=== PATIENT | male | born 1955 | race Caucasian/White ===

== ENCOUNTER 2019-09-29 09:20 | Inpatient (IN) | payer OTHER ==
[~2019-09-29] VITALS: Ht 180.3 cm; Wt 100.2 kg
[2019-09-29] VITALS (16 sets, daily range): BP systolic 122–149; BP diastolic 61–76
--- NOTE | 2019-09-29 09:37 | NUR ---
[facility] [phone]. PLEASE CALL WITH RESULTS.
[2019-09-29 09:50] LABS: BE(vivo) -2.7 mmol/L (-2 to +3); HCO3 19.1 mmol/L (22.0-26.0); PCO2 26.4 mmHg (35.0-45.0); PO2 180.2 mmHg (80.0-100.0); pH 7.477 (7.360-7.450); sO2 99.4 % (92.0-98.0)
[2019-09-29 10:05] LABS: ABSOLUTE NEUTROPHILS 6.9 thou/uL (1.4-8.2); BASOPHILS 0.9 % (0.0-2.0); EOSINOPHILS 5.2 % (0.0-3.0); HEMOGLOBIN 15.4 gm/dL (14.0-18.0); LYMPHOCYTES 13.8 % (24.0-44.0); MCH 35.5 pg (26.0-34.0); MCHC 34.2 g/dL (28.0-37.0); MCV 103.8 fL (80.0-100.0); MONOCYTES 9.1 % (1.0-8.0); PLATELET COUNT 222 thou/uL (150-400); RBC 4.33 mil/uL (4.50-6.00); RDW 14.3 % (10.5-14.5); WBC 9.7 thou/uL (4.0-11.0)
[2019-09-29 10:12] LABS: CALCIUM 8.7 mg/dL (8.5-10.1); CREATININE 0.9 mg/dL (0.7-1.3); POTASSIUM 3.7 mmol/L (3.5-5.1)
[2019-09-29] MEDS ORDERED: SYMBICORT160 MCG/4. INH (10:24)
[2019-09-29] MEDS ORDERED: PROAIR HFA8.5 GM INH (10:24)
[2019-09-29] MEDS ORDERED: SPIRIVA18 MCG PO (10:24)
[2019-09-29] MEDS ORDERED: PANTOPRAZOLE SO40 M1 PO (10:25)
[2019-09-29] MEDS ORDERED: ALLOPURINOL 30300 M1 PO (10:25)
[2019-09-29] MEDS ORDERED: ASPIR 8181 M1 PO (10:25)
[2019-09-29] MEDS ORDERED: MELOXICAM15 MG PO (10:25)
[2019-09-29] MEDS ORDERED: FOLIC ACID1 MG PO (10:25)
[2019-09-29] MEDS ORDERED: ZESTRIL20 MG PO (10:25)
--- NOTE | 2019-09-29 11:50 | NUR ---
SPOKE TO DR. CÁRDENAS AT THIS TIME, DR. CÁRDENAS STATED HE TOOK MASK OFF TO TRIAL NO BIPAP AND ROOM AIR. DR. CÁRDENAS CALLING DR. OLIVO
--- NOTE | 2019-09-29 16:51 | EKG ---
[facility] [place] [address] ELECTROCARDIOGRAM REPORT Name: ESDRAS WHITFIELD Room #: 247-P ADM IN M.R.#: [id number] Admission: 09/29/19 Attend Phys: Sandy Barnes Discharge: Date of : 51 Report #: [id number] THIS REPORT FOR: cc: FAM - Family physician unknown FAM - Family physician unknown Dennis Meyer MD [facility] ~ THIS REPORT FOR: //name// [facility] ED Test Date: 2019-09-29 Test Time: 09:44:42 Pat Name: ESDRAS WHITFIELD Department: Room: [facility] Gender: M Grants Administrator: HANH : 1955 Requested By: Bernard Ledesma Order Number: [id number] MD: Dennis Meyer Measurements Intervals [place] Rate: 97 P: 62 KS: 180 QRS: 45 QRSD: 98 T: 53 QT: 352 QTc: 447 Interpretive Statements Sinus rhythm Nonspecific ST segment abnormality No previous ECG available for comparison Electronically Signed On 09-29-2019 16:51:36 CDT by Dennis Meyer [email or web address] <ELECTRONICALLY SIGNED> By: Dennis Meyer MD, [facility] 09/29/19 1651 3 Dennis Meyer MD, [facility] /EPI
--- NOTE | 2019-09-29 20:15 | NUR ---
1645 PT ADMIT FROM ED. SPOKE WITH MONICO KAY, EUSEBIO TO DC ENHANCED PRECAUTIONS SINCE COVID - AND CXR IS CLEAR. PT ON BIPAP AT 100. STATES HE FEELS MUCH BETTER 1730 SPOKE WITH GIRL FRIEND, PLACED ON DESIGNATED VISITOR LIST AND GIVEN PT INFO. PLANS TO BRING GLASSES TOMORROW. 1800 KELLY OFF BIPAP. TOLERATE WATER.
[2019-09-30] VITALS (19 sets, daily range): BP systolic 117–144; BP diastolic 51–70
--- NOTE | 2019-09-30 04:46 | NUR ---
ASSESSMENT DOCUMENTED.PT BEEN RESTING IN NO ACUTE DISTRESS.A/OX4.VSS.ON O2 [id number] PNC,SPO2 ABOVE 93%.PT DENIES RESP DISTRESS,NOTED DYSPNEA WITH POSITIONING IN THE BED.NSR ON MONITOR.VOIDING VIA URINAL.ADEQAUTE URINE OUTPUT.TOLERATING ORAL FLUIDS.POC IS TO CONT W/POC.WILL CONT TO MONITOR PER POC.
[2019-09-30 07:57] LABS: BASOPHILS 0.2 % (0.0-2.0); EOSINOPHILS 0.2 % (0.0-3.0); HEMATOCRIT 48.8 % (42.0-52.0); HEMOGLOBIN 16.3 gm/dL (14.0-18.0); LYMPHOCYTES 15.2 % (24.0-44.0); MCH 35.5 pg (26.0-34.0); MCHC 33.3 g/dL (28.0-37.0); MCV 106.6 fL (80.0-100.0); MONOCYTES 2.6 % (1.0-8.0); POLYS 81.8 % (36.0-66.0); RBC 4.58 mil/uL (4.50-6.00); RDW 14.4 % (10.5-14.5); WBC 9.7 thou/uL (4.0-11.0)
[2019-09-30 08:02] LABS: CALCIUM 8.9 mg/dL (8.5-10.1); CREATININE 0.5 mg/dL (0.7-1.3); MAGNESIUM 2.4 mg/dL (1.8-2.4)
[2019-09-30 08:03] LABS: POTASSIUM 5.5 mmol/L (3.5-5.1)
[2019-09-30 08:31] LABS: PLATELET COUNT 120 thou/uL (150-400)
--- NOTE | 2019-09-30 08:51 | NUR ---
PATIENT IS ALERT ORIENTED X4 AT THIS TIME. HE STATES HEW FEELS MUCH BETTER. DENIES PAIN. OXYGEN SAT SIGNIGICANTLY IMPROVED HE IS NOW ON 4L NC. HAD A GOOD APPETITE FOR BREAKFAST. WILL CONT WITH PLAN OFCARE.
--- NOTE | 2019-09-30 17:30 | NUR ---
PATIENT TRANSFERED TO AT THIS TIME. HE IS ALERT ORIENTED X4. DENIES PAIN. CONT ON OXYGEN AT 3L. REPORT AND TRANSPORT PROVIDED.
--- NOTE | 2019-09-30 17:57 | NUR ---
PT ARRIVED TO UNIT FROM ICU AT APPROX 1715. PT ALERT AND ORIENTED.VSS. DENIES PAIN. PT UP WALKING SBA TOLERATING WELL. O2 SATS WNL ON 3L. SOB WITH EXERTION. ASSESSMENT COMPLETED. TELE STRIP PRINTED AND DOCUMENTED. PT CURRENTLY SITTING UP IN BED DENYING NEEDS/CONCERNS. S/O HANNAH NOTFIIED OF TX TO CCU, HANNAH TO BRING PT CELL PHONE AND MAGAZINES TO DROP OFF FOR PT. WILL CONT TO MONITOR PT. WILL PASS ON REPORT TO NATHAN BARRIOS.
[2019-10-01 04:15] VITALS: BP 134/68
--- NOTE | 2019-10-01 05:26 | NUR ---
ASSUMED CARE OF PT FROM DAY SHIFT , PT RESTING BED , HAVE NO CONCERNS VOICED, ASSESSMENT CHART, ACOUSTIC SENSOR OPERATOR SHOWS NSR , PT RESTED WELL THROUGHOUT HOURLY ROUNDS WILL REPORT CHANGES AND ABNORMAL FINDINGS.
[2019-10-01 07:26] VITALS: BP 125/70
[2019-10-01 11:10] VITALS: BP 133/66
[2019-10-01 15:39] VITALS: BP 134/76
--- NOTE | 2019-10-01 18:32 | NUR ---
ASSUMED CARE PT SHIFT CHANGE. ASSESSMENTS CHARTED.MEDS GIVEN PER MAR. PT ALERT AND ORIENTED. VSS. UP ADLIB TOLERATING WELL. DENIES SOB. PT STATES BREATHING IS BETTER. PT TITRATED OFF O2 TO ROOM AIR. SPOUSE VISITED WITH PT. HOPEFUL FOR DC IN AM. PT CURRENTLY SITTING UP IN BED DENIES CONCERNS. CONTINUING TO MONITOR.
[2019-10-01 20:54] VITALS: BP 120/64
[2019-10-02 04:00] VITALS: BP 125/75
[2019-10-02 07:34] VITALS: BP 140/75
[2019-10-02] MEDS ORDERED: AZITHROMYCIN500 MG PO (09:04)
[2019-10-02] MEDS ORDERED: MEDROL4 M1 PO (09:05)
--- NOTE | 2019-10-02 10:25 | NUR ---
RECEIVED PT'S CARE AROUND 0736; PT. ON BED; RESTING WITH EYES CLOSED; EQUAL CHEST RISING NOTICED; SR ON THE MONITOR; DURING AM ASSESSMENT AOX4; PER DR. LORENZO DURING ROUNDING PT. READY TO BE D/C; REQUESTED D/C ORDERS; D/C ORDERS ON PLACED; PT. NOTIFIED; EDUCATED ABOUT D/C PROCESS; ST. UNDERSTANDING; EDUCATED ABOUT FALL PREVENTIONS; ST. UNDERSTANDING; ASSESSMENT CHARGED; FOLLOWED POC; WORKING ON D/C PAPERS;
[2019-10-02 10:35] VITALS: BP 140/75
== END 2019-10-02 11:26 | disposition home or self-care (01) | DRG 189 ==
LOC: ER 09:20 → EROBS 15:07 → ICU 16:50 → 2N 09-30 17:08
PROVIDERS: Emergency Medicine; Nurse Practitioner; ADMIT Hospitalist; ATTEND Hospitalist
PROC: 5A09357 Assistance with Respiratory Ventilation, Less than 24 Consecutive Hours, Continuous Positive Airway Pressure (ICD-10-PCS; principal; 2019-09-29)
DX: J96.01 Acute respiratory failure with hypoxia (principal); J44.1 Chronic obstructive pulmonary disease with (acute) exacerbation; I50.9 Heart failure, unspecified; J96.02 Acute respiratory failure with hypercapnia; E66.9 Obesity, unspecified; F10.10 Alcohol abuse, uncomplicated; Z20.828 Contact with and (suspected) exposure to other viral communicable diseases; I11.0 Hypertensive heart disease with heart failure; Z68.30 Body mass index [BMI] 30.0-30.9, adult; Z87.891 Personal history of nicotine dependence; Z71.6 Tobacco abuse counseling
CPT/HCPCS: 10081; 10204

== ENCOUNTER 2019-10-24 04:38 | Inpatient (IN) | payer OTHER ==
[~2019-10-24] VITALS: Ht 180.3 cm; Wt 103.0 kg
[~2019-10-24 04:38] MED LIST: ALLOPURINOL 30300 M1 PO; ASPIR 8181 M1 PO; AZITHROMYCIN500 MG PO; FOLIC ACID1 MG PO; MEDROL4 M1 PO; MELOXICAM15 MG PO; PANTOPRAZOLE SO40 M1 PO; PROAIR HFA8.5 GM INH; SPIRIVA18 MCG PO; SYMBICORT160 MCG/4. INH; ZESTRIL20 MG PO
[2019-10-24 04:39] VITALS: BP 132/66
[2019-10-24 05:17] LABS: ABSOLUTE NEUTROPHILS 4.3 thou/uL (1.4-8.2); BASOPHILS 0.7 % (0.0-2.0); EOSINOPHILS 12.8 % (0.0-3.0); HEMATOCRIT 41.7 % (42.0-52.0); HEMOGLOBIN 14.5 gm/dL (14.0-18.0); MCH 35.5 pg (26.0-34.0); MCHC 34.9 g/dL (28.0-37.0); MCV 101.7 fL (80.0-100.0); PLATELET COUNT 206 thou/uL (150-400); POLYS 48.5 % (36.0-66.0); WBC 8.9 thou/uL (4.0-11.0)
[2019-10-24 05:26] LABS: ANION GAP 9 mmol/L (7-16); BUN 14 mg/dL (7-18); CALCIUM 8.8 mg/dL (8.5-10.1); CHLORIDE 106 mmol/L (98-107); CO2 27 mmol/L (21-32); GLUCOSE 111 mg/dL (74-106); POTASSIUM 3.8 mmol/L (3.5-5.1); SODIUM 142 mmol/L (136-145)
[2019-10-24 05:36] LABS: ALBUMIN 3.5 g/dL (3.4-5.0); SGOT 30 U/L (15-37); SGPT 54 U/L (30-65); TOTAL BILIRUBIN 0.5 mg/dL (0.2-1.0); TOTAL PROTEIN 7.2 g/dL (6.4-8.2); TROPONIN-I <0.06 ng/mL (<0.06)
[2019-10-24] MEDS ORDERED: PREDNISONE 20 M20 MG PO (06:12)
[2019-10-24 14:46] LABS: ABSOLUTE NEUTROPHILS 3.9 thou/uL (1.4-8.2); BASOPHILS 0.6 % (0.0-2.0); EOSINOPHILS 0.3 % (0.0-3.0); HEMOGLOBIN 14.6 gm/dL (14.0-18.0); LYMPHOCYTES 14.4 % (24.0-44.0); MCH 35.3 pg (26.0-34.0); MCHC 34.8 g/dL (28.0-37.0); MCV 101.6 fL (80.0-100.0); MONOCYTES 0.8 % (1.0-8.0); PLATELET COUNT 188 thou/uL (150-400); POLYS 83.9 % (36.0-66.0); RBC 4.13 mil/uL (4.50-6.00); RDW 14.2 % (10.5-14.5); WBC 4.6 thou/uL (4.0-11.0)
[2019-10-24 15:27] VITALS: BP 145/76
[2019-10-24 15:34] VITALS: BP 145/71
--- NOTE | 2019-10-24 16:06 | EKG ---
[facility] [place] [address] ELECTROCARDIOGRAM REPORT Name: ESDRAS WHITFIELD Room #: 360-P ADM IN M.R.#: [id number] Admission: 10/24/19 Attend Phys: Jai Driscoll MD Discharge: Date of : 51 Report #: [id number] THIS REPORT FOR: cc: FAM - Family physician unknown FAM - Family physician unknown Sam Martinez MD ~ THIS REPORT FOR: //name// [facility] ED Test Date: 2019-10-24 Test Time: 04:45:00 Pat Name: ESDRAS WHITFIELD Department: Room: [facility] Gender: M Hardwood Faller: NO : 1955 Requested By: Ronal Morgan Order Number: [id number] MD: Sam Martinez Measurements Intervals [place] Rate: 95 P: 59 [place]: 183 QRS: 32 QRSD: 100 T: 55 QT: 379 QTc: 477 Interpretive Statements Sinus rhythm Ventricular bigeminy Anteroseptal infarct, old Compared to ECG 09/29/2019 09:44:42 Ventricular premature complex(es) now present Myocardial infarct finding now present ST (T wave) deviation no longer present Electronically Signed On 10-24-2019 16:06:19 CDT by Sam Martinez [email or web address] <ELECTRONICALLY SIGNED> By: Sam Martinez MD 10/24/19 1606 4 Sam Martinez MD /EPI
[2019-10-24 16:15] VITALS: BP 149/83
--- NOTE | 2019-10-24 18:01 | NUR ---
ASSUMED PATIENT CARE UPON ARRIVAL FROM ER. PATIENT ARRIVED TO FLOOR AWAKE ALERT ORIENTED, VIA WC. NO ACUTE RSP DISTRESS NOTED. O2 SAT STABLE ON 2LNC. VSS. ASSESSMENTS/ MEDS CHARTED. ORIENTED TO ROOM. EDUCATED ON FALL PRECAUTIONS. ALL QUESTIONS ANSWERED AT THIS TIME. EDUCATED ON ISOLATION PROCEDURES. PENDING COVID RESULTS.
[2019-10-24 20:05] VITALS: BP 145/74
--- NOTE | 2019-10-25 01:10 | NUR ---
VSS-AFEBRILE. 2LNC IN PLACE. LUNGS SOUND TIGHT AND WHEEZY IN BILATERAL LUNG HOBSON. REPORTS MILD SOA WITH EXERTION. OOB WITH SBA TO USE BATHROOM, CALLS APPROPRIATELY FOR ANY NEEDED ASSISTANCE.
[2019-10-25 04:14] VITALS: BP 142/82
[2019-10-25 05:35] LABS: HEMATOCRIT 40.9 % (42.0-52.0); HEMOGLOBIN 14.2 gm/dL (14.0-18.0); MCH 35.4 pg (26.0-34.0); MCHC 34.6 g/dL (28.0-37.0); MCV 102.3 fL (80.0-100.0); RDW 13.5 % (10.5-14.5); WBC 8.7 thou/uL (4.0-11.0)
[2019-10-25 05:51] LABS: CALCIUM 8.7 mg/dL (8.5-10.1); CREATININE 0.9 mg/dL (0.7-1.3); POTASSIUM 3.9 mmol/L (3.5-5.1)
[2019-10-25 08:32] VITALS: BP 141/76
--- NOTE | 2019-10-25 13:44 | NUR ---
INITIAL ASSESSMENT: SUE reviewed chart and spoke with nursing and attending physician. Pt was admitted from home due to exacerbation of COPD. Pt placed in Enhanced Isolation to r/o COVID-19. First test was negative. Second test is pending. Pt is afebrile and on 2L of O2. Pt is on IV abx and IV steroids. Pt with hx of ETOH use. SUE placed call to pt's room. No answer. SUE left voice message on listed contact number for pt ([phone]). Per chart, pt is alert/orientated. Pt lives at home with s/oMiya. Pt may transfer of 3W pending COVID results. SUE is following to assist as needed with discharge planning.
--- NOTE | 2019-10-25 14:57 | NUR ---
PT CARE ASSUMMED AT 0700, PT ALERT AND ORIENTED X4, PT DENIES CHEST PAIN,NUASEA AND VOMITTING. PT IS ON 2L OF O2 VIA NC, NO SIGNS OF DISTRESS. PT IS UP AD GIL. PT DENIES ANY PAIN. CALL LIGHT AND TABLE IN REACH. PT DENIES ANY NEEDS BASILIO, WILL CONTINUE TO MONITOR.
--- NOTE | 2019-10-25 16:47 | NUR ---
PT MAY BE REMOVED FROM ENHANCED PRECAUTIONS PER JOE KAY.
[2019-10-25 20:10] VITALS: BP 131/61
--- NOTE | 2019-10-25 23:00 | NUR ---
Pt transferred from at 2150 via WC. A/OX4. Up ad fidencio. Denies pain on asssessment. LSCTA.No cough or SOA reported. On O2 2L/NC. Pt encouraged to voice needs as needed. Snacks provided per request. Resting in room watching TV will continue to monitor pt.
[2019-10-26 01:20] VITALS: BP 124/61
[2019-10-26 07:34] VITALS: BP 129/56
[2019-10-26 11:17] LABS: TSH 0.513 uIU/mL (0.358-3.740)
[2019-10-26] MEDS ORDERED: AUGMENTIN 875-1 EACH PO (11:17)
[2019-10-26] MEDS ORDERED: PREDNISONE 20 M20 M1 PO (11:17)
[2019-10-26 11:45] VITALS: BP 129/56
--- NOTE | 2019-10-26 12:01 | NUR ---
CARE TEAM INDICATED THAT PT IS MEDICALLY STABLE TO DISCHARGE HOME THIS DAY. EX OX TESTING WAS COMPLETED AND PT DIDN'T QUALIFY FOR HOME O2 AT TIME OF DC. PT IS TO DC HOME TO SELF CARE. CM MET WITH PT AND SPOUSE AT BEDSIDE AND THEY ARE AWARE AND AGREEABLE WITH DC. NO OTHER CM INTERVENTION INDICATED. CASE CLOSED.
--- NOTE | 2019-10-26 12:11 | NUR ---
PT CARE ASSUMED APPROX 0700. ASSESSMENT CHARTED. PT DENIES PAIN AND SOA. VSS. UP WITH STEADY GAIT AND LIBERATED FROM O2. DISCHARGING AT THIS TIME. DISCHARGE INSTRUCTIONS REVIEWED WITH PT AND HIS . BOTH DENY QUESTIONS OR CONCERNS REGARDING POST HOSPITAL CARES. IV OUT, TELE OFF. PT BEING ESCORTED OUT AT THIS TIME. ALL BELONGINGS IN PT POSSESSION.
== END 2019-10-26 12:16 | disposition home or self-care (01) | DRG 193 ==
LOC: ER 04:38 → EROBS 09:17 → 3W 09:17 → 4W 10-25 22:05
PROVIDERS: Emergency Medicine; Internal Medicine Geriatric Medicine; Internal Medicine Pulmonary Disease; ADMIT Hospitalist; ATTEND Hospitalist
DX: J18.9 Pneumonia, unspecified organism (principal); J96.01 Acute respiratory failure with hypoxia; J44.1 Chronic obstructive pulmonary disease with (acute) exacerbation; I50.9 Heart failure, unspecified; I11.0 Hypertensive heart disease with heart failure; D72.1 Eosinophilia; Z20.828 Contact with and (suspected) exposure to other viral communicable diseases; Z71.6 Tobacco abuse counseling; Z79.899 Other long term (current) drug therapy
CPT/HCPCS: 10040; 10080

== ENCOUNTER 2020-12-28 16:05 | Inpatient (IN) | payer OTHER ==
[~2020-12-28] VITALS: Ht 180.3 cm; Wt 101.2 kg
[2020-12-28] VITALS (18 sets, daily range): BP systolic 89–124; BP diastolic 40–62
--- NOTE | ~2020-12-28 | EMS ---
[place] [address] EMS Patient Care Report Name: ESDRAS WHITFIELD Room #: 170-6 ADM IN M.R.#: [id number] Admission: 12/28/20 Attend Phys: Ash Rosa MD Discharge: Date of : 51 Report #: [id number] THIS REPORT FOR: //name// Report Transmitted: 12/28/2020 17:10 EMS Care Summary [place], [place]/[facility] Incident [id number] @ 12/28/2020 15:18 Incident Location [address] [address] Patient NED WHITFIELD Male, 65 Years 1955 Patient Address [address], [place] [address] Patient History Cancer, Unspecified,Chronic Obstructive Pulmonary Disease (COPD), Patient Allergies No known allergies, Patient Medications Hydrocodone, Chief Complaint Lethargic Disposition Transported No Lights/[place] Dispatch Reason Sick Person Transported To [facility] Narrative M36 dispatched on a sick person. M36 arrived to find PT seated in recliner inside of home with P30 at PT side. PT family stated lethargy as chief complaint. PT stated PT normally alert and oriented x4 and ambulatory. PT grunted in response to questions. PT radial pulse thready[place] [address] EMS Patient Care Report Name: ESDRAS WHITFIELD Room #: 170-6 ADM IN M.Ryan.#: [id number] Admission: 12/28/20 Attend Phys: Ash Rosa MD Discharge: Date of : 51 Report #: [id number] and placed on federico barnworker groom. PT carried out of home on federico barnworker groom by EMS and fire personnel. PT placed on stretcher. PT secured with seatbelts. Surgical mask placed on PT. PT vitals taken including blood glucose. PT treated for hypoglycemia. PT placed on oxygen. IV access obtained by Artist'S Manager Stalker. During transport PT became alert to self and place only. PT denied pain. PT denied shortness of breath. PT vitals monitored during transport including blood glucose. PT report given. PT moved to hospital bed via four person sheet lift. PT care and belongings transferred to ER staff at [facility] without incident. M36 placed back in service. Initial Vitals @15:50P: 110,R: 18,BP: 82/46,Pain: 0/10,GCS: 14,CO: 0,SpO2: 95,Revised Trauma: 11, @15:43P: 106,R: 18,BP: 88/42,Pain: 0/10,GCS: 13,SpO2: 93,Revised Trauma: 11, @15:38P: 102,R: 20,BP: 94/46,Pain: 0/10,GCS: 13,Glucose: 45,SpO2: 94,Revised Trauma: 12, @15:43P: 102,R: 18,BP: 98/60,Pain: 0/10,GCS: 14,Glucose: 230,SpO2: 95,Revised Trauma: 12, Assessments @15:29MENTAL:Confused,SKIN:Jaundiced,Pale,HEENT:LUNG SOUNDS:General: Other,ABDOMEN:General: Other,PELVIS//GI:EXTREMITIES:Left Arm: Other,Right Leg: Edema,Left Leg: Edema,Right Arm: Other,PULSE:Radial: 1+ Thready,NEURO:Slurred Speech,@15:49MENTAL:Person Oriented,Place Oriented,Confused,SKIN:Pale,Jaundiced,HEENT:LUNG SOUNDS:General: Other,ABDOMEN:General: Other,PELVIS//GI:EXTREMITIES:PULSE:NEURO: Impression Altered Mental Status Procedures @PTAALS Assessment Response: UnchangedSucceeded @15:37 IV Therapy - Normal Saline (.9% NaCl) 300cc (20 ga) Site: Hand-Left Response: UnchangedSucceeded @15:39 Dextrose 10% - 200 Milliliters (ml) - Intravenous (IV) Response: Improved @15:46 Oxygen FlowRate: 2 Device: Nasal Cannula (NC) Response: UnchangedSucceeded Timeline INSIDE SALES REPRESENTATIVE,ALS Assessment,Response: UnchangedSucceeded, 15:16,Call Received 15:16,Dispatch Notified 15:18,[place] [address] EMS Patient Care Report Name: ESDRAS WHITFIELD Room #: 170-6 ADM IN M.R.#: [id number] Admission: 12/28/20 Attend Phys: Ash Rosa MD Discharge: Date of : 51 Report #: [id number] 15:19,En Route 15:27,On Scene 15:28,At Patient 15:37,IV Therapy - Normal Saline (.9% NaCl) 300cc 20 ga Site: Hand-Left,Response: UnchangedSucceeded, 15:38,BP: 94/46 M,PULSE: 102,RR: 20 R,SPO2: 94 Ox,ETCO2: ,B,PAIN: 0,GCS: 13, 15:39,Dextrose 10% - 200 Milliliters (ml) - Intravenous (IV),Response: Improved 15:43,BP: 88/42 M,PULSE: 106,RR: 18 R,SPO2: 93 Ox,ETCO2: ,BG: ,PAIN: 0,GCS: 13, 15:43,BP: 98/60 M,PULSE: 102,RR: 18 R,SPO2: 95 Ox,ETCO2: ,B,PAIN: 0,GCS: 14, 15:45,Depart Scene 15:46,Oxygen FlowRate: 2 Device: Nasal Cannula (NC) Response: UnchangedSucceeded, 15:50,BP: 82/46 M,PULSE: 110,RR: 18 R,SPO2: 95 Ox,ETCO2: ,BG: ,PAIN: 0,GCS: 14, 15:58,At Destination 16:08,Call Closed Disclaimer v1.1 Copyright 2020 [employer] This EMS Care Summary contains data elements from the applicable legal record (which may be displayed differently). It is designed to provide pertinent information for the following purposes: continuity of care, clinical quality, and state data reporting. The complete legal record is available to ED staff and administrators of the receiving hospital in [employer]'s Patient Tracker. All data is provided "as is."
[~2020-12-28 16:05] MED LIST changes: +AUGMENTIN 875-1 EACH PO; +PREDNISONE 20 M20 M1 PO; +PREDNISONE 20 M20 MG PO
[2020-12-28 16:28] LABS: HEMATOCRIT 24.6 % (42.0-52.0); HEMOGLOBIN 7.9 gm/dL (14.0-18.0); MCH 29.9 pg (26.0-34.0); MCHC 32.1 g/dL (28.0-37.0); MCV 93.4 fL (80.0-100.0); PLATELET COUNT 111 thou/uL (150-400); RBC 2.64 mil/uL (4.50-6.00); RDW 24.4 % (10.5-14.5)
[2020-12-28 16:38] LABS: CALCIUM 7.4 mg/dL (8.5-10.1); CREATININE 2.9 mg/dL (0.7-1.3); POTASSIUM 4.2 mmol/L (3.5-5.1)
[2020-12-28 16:41] LABS: BE(vivo) -4.8 mmol/L (-2 to +3); HCO3 18.4 mmol/L (22.0-26.0); pH 7.451 (7.360-7.450); sO2 97.8 % (92.0-98.0)
[2020-12-28 16:49] LABS: ALBUMIN 1.4 g/dL (3.4-5.0); TOTAL BILIRUBIN 3.9 mg/dL (0.2-1.0); TOTAL PROTEIN 5.9 g/dL (6.4-8.2)
[2020-12-28 16:52] LABS: URINE BILIRUBIN 2+ (Negative); URINE BLOOD NEGATIVE (Negative); URINE CLARITY CLEAR; URINE COLOR YELLOW; URINE GLUCOSE-RANDOM* TRACE (Negative); URINE KETONES TRACE (Negative); URINE LEUKOCYTES-REFLEX NEGATIVE (Negative); URINE PROTEIN (DIPSTICK) TRACE (Negative); URINE SPECIFIC GRAVITY >= 1.030 (1.005-1.035)
[2020-12-28 16:54] LABS: ICTOTEST (BILI CONFIRMATORY) Positive (Negative); URINE NITRITE-REFLEX POSITIVE (Negative)
[2020-12-28 16:58] LABS: ABSOLUTE NEUTROPHILS 27.7 thou/uL (1.4-8.2)
[2020-12-28 16:58] LABS: APTT 66.5 Seconds (24.5-32.8); INR 4.18; PROTIME 42.6 Seconds (10.5-12.1)
[2020-12-28 16:59] LABS: ANISOCYTOSIS 2+
[2020-12-28 17:06] LABS: CRYSTALS None Seen /LPF (None Seen); SQUAMOUS 0-3 Few /LPF (0-3); URINE RBC 1-2 Rare /HPF (NONE SEEN); URINE WBC-REFLEX 0-5 Rare /HPF (0-5)
[2020-12-28 17:07] LABS: HYALINE CASTS 0-3 Few /LPF (None Seen)
[2020-12-28 21:20] LABS: CALCIUM 7.5 mg/dL (8.5-10.1); CREATININE 2.8 mg/dL (0.7-1.3)
[2020-12-29] VITALS (92 sets, daily range): BP systolic 79–147; BP diastolic 34–88
[2020-12-29 05:29] LABS: APTT 73.1 Seconds (24.5-32.8); INR 4.18; PROTIME 42.6 Seconds (10.5-12.1)
[2020-12-29 05:35] LABS: ABSOLUTE NEUTROPHILS 33.5 thou/uL (1.4-8.2); BASOPHILS 0.1 % (0.0-2.0); EOSINOPHILS 0.1 % (0.0-3.0); HEMATOCRIT 25.8 % (42.0-52.0); HEMOGLOBIN 8.4 gm/dL (14.0-18.0); LYMPHOCYTES 5.5 % (24.0-44.0); MCH 30.4 pg (26.0-34.0); MCHC 32.6 g/dL (28.0-37.0); MCV 93.5 fL (80.0-100.0); MONOCYTES 6.5 % (1.0-8.0); PLATELET COUNT 108 thou/uL (150-400); POLYS 87.8 % (36.0-66.0); RBC 2.76 mil/uL (4.50-6.00); RDW 24.4 % (10.5-14.5); WBC 38.1 thou/uL (4.0-11.0)
[2020-12-29 05:41] LABS: CALCIUM 7.4 mg/dL (8.5-10.1); CREATININE 2.2 mg/dL (0.7-1.3); POTASSIUM 3.7 mmol/L (3.5-5.1)
--- NOTE | 2020-12-29 08:20 | NUR ---
PT ARRIVED TO UNIT APPROX 2009. ADMISSION COMPLETED. PT LETHARGIC W/INTERMITTENT BURSTS OF RESTLESS/IMPULSIVE ACTIVITY, STRUGGLED TO FOLLOW COMMANDS. 0-CALLED , UPDATED ON CONDITION, AND OBTAINED HISTORY. SHE REPORTS PT WISHES TO BE DNI, BUT WOULD STILL WANT CHEST COMPRESSIONS, SAYS SHE WILL BRING COPY OF ADV DIRECTIVE AND DPOA PAPERS WHEN SHE VISITS. ELEVATED LACTIC OVERNIGHT, FLUID CHALLENGE COMPLETED, GIVEN ALBUMIN, LEVO CHANGED TO QUAD STRENGTH. SPOKE TO DR. PONCE AND DR. GREGROY AT BEDSIDE THIS AM. NO FURTHER CONCERNS.
[2020-12-29 11:16] LABS: ALBUMIN 1.5 g/dL (3.4-5.0); DIRECT BILIRUBIN 3.3 mg/dL (<0.1-0.2); TOTAL PROTEIN 6.2 g/dL (6.4-8.2)
[2020-12-29 11:17] LABS: TOTAL BILIRUBIN 4.1 mg/dL (0.2-1.0)
--- NOTE | 2020-12-29 13:31 | EKG ---
[address] [place] [address] ELECTROCARDIOGRAM REPORT Name: ESDRAS WHITFIELD Room #: 243-P ADM IN M.R.#: [id number] Admission: 12/28/20 Attend Phys: Ash Rosa MD Discharge: Date of : 51 Report #: [id number] [facility] ED Test Date: 2020-12-28 Test Time: 16:15:05 Pat Name: ESDRAS WHITFIELD Department: Room: 243 Gender: M Partner Cco: AMBREEN : 1955 Requested By: Adonis Hurley Order Number: [id number] MD: Dennis Meyer Measurements Intervals [place] Rate: 108 P: 58 PA: 168 QRS: -14 QRSD: 114 T: 171 QT: 332 QTc: 445 Interpretive Statements Sinus tachycardia Nonspecific intraventricular conduction delay Poor R wave progression Inferior infarct, old Compared to ECG 10/24/2019 04:45:00 Nonspecific intraventricular conduction delay now present Nonspecific change in the ST and T wave segments Ventricular premature complex(es) no longer present Electronically Signed On 12-29-2020 13:30:44 CDT by Dennis Meyer [email or web address] <ELECTRONICALLY SIGNED> By: Dennis Meyer MD, FACC 12/29/20 1330 1615 1615 Dennis Meyer MD, [facility] /EPI
--- NOTE | 2020-12-29 17:53 | NUR ---
PATIENT SLOWLY PROGRESSING TOWARDS THE PLAN OF CARE. 2 U OF FFP GIVEN TODAY. WILL CHECK INR IN THE AM PER DR. OLGUIN.
[2020-12-29 18:58] LABS: CALCIUM 7.8 mg/dL (8.5-10.1); CREATININE 1.9 mg/dL (0.7-1.3)
[2020-12-30] VITALS (98 sets, daily range): BP systolic 88–143; BP diastolic 41–71
--- NOTE | 2020-12-30 03:29 | NUR ---
PT SUDDENLY BECAME VERY AGITATED AND TRYING TO GET OUT OF BED. RODRIGUEZ FEEDER OPERATOR NOTIFIED. HALDOL 2 MG IV ORDERED AND GIVEN.
[2020-12-30 04:36] LABS: ABSOLUTE NEUTROPHILS 26.8 thou/uL (1.4-8.2); BASOPHILS 0.3 % (0.0-2.0); HEMOGLOBIN 8.1 gm/dL (14.0-18.0); LYMPHOCYTES 7.8 % (24.0-44.0); MCH 30.1 pg (26.0-34.0); MCHC 32.3 g/dL (28.0-37.0); MCV 93.2 fL (80.0-100.0); MONOCYTES 8.6 % (1.0-8.0); PLATELET COUNT 83 thou/uL (150-400); POLYS 83.3 % (36.0-66.0); RBC 2.69 mil/uL (4.50-6.00); RDW 23.8 % (10.5-14.5); WBC 32.2 thou/uL (4.0-11.0)
[2020-12-30 04:54] LABS: PROTIME 21.3 Seconds (10.5-12.1)
[2020-12-30 04:55] LABS: INR 2.02
[2020-12-30 04:56] LABS: APTT 47.6 Seconds (24.5-32.8)
[2020-12-30 04:57] LABS: ALBUMIN 1.7 g/dL (3.4-5.0); CALCIUM 7.7 mg/dL (8.5-10.1); CREATININE 1.8 mg/dL (0.7-1.3); MAGNESIUM 1.6 mg/dL (1.8-2.4)
[2020-12-30 04:58] LABS: POTASSIUM 2.7 mmol/L (3.5-5.1); TOTAL BILIRUBIN 4.7 mg/dL (0.2-1.0)
--- NOTE | 2020-12-30 06:00 | NUR ---
REMAINS ON LEVOPHED GTT AT 16 MCG FOR BP SUPPORT
--- NOTE | 2020-12-30 06:00 | NUR ---
PT RESTING QUIETLY NOW. COOPERATIVE. O2 SAT 99 % REMAINS NPO FOR THORACENTESIS THIS AM 800 CC UO THIS SHIFT. CONT TO HAVE SEVERE ACITIES AND 4 + PITTING EDEMA OF FEET. VERY DYSPNIC WITH ANY EXERTION. PT IS A DO NOT INTUBATE. NOT PROGRESSING TOWARD GOALS
--- NOTE | 2020-12-30 07:35 | HC ---
[facility] [place] [address] CONSULTATION Name: ESDRAS WHITFIELD Room #: 243-P ADM IN M.R.#: [id number] Admission: 12/28/20 Attend Phys: Ash Rosa MD Discharge: Date of : 51 Report #: [id number] THIS REPORT FOR: cc: FAM - Family physician unknown FAM - Family physician unknown Raul Stephens MD ~ DATE OF SERVICE: 12/29/2020 INFECTIOUS DISEASE CONSULTATION ATTENDING PHYSICIAN: Dr. Ash Rosa REASON FOR EVALUATION: Septic shock. HISTORY OF PRESENT ILLNESS: Chart reviewed. The patient examined. This is a 65-year-old gentleman who is encephalopathic, difficult to obtain additional history from him. 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 He apparently became more encephalopathic in recent days. He had undergone a paracentesis 5 days prior, took off 4.5 liters of fluid. There are no other details of the analysis. He became increasingly lethargic. On questioning, he notes abdominal discomfort, although no sense of whether he has had fever or not. On evaluation, he was found to be hypotensive. Initial blood cultures were satisfactory on 2 liters with pO2 of 98. He is in renal failure with a creatinine of 2.9. Albumin is 1.4. Coronavirus testing was negative. Initial CBC showed a white count of 33,000, hemoglobin of 7.9, and platelets of 111. Urinalysis was otherwise not remarkable for inflammation, had evidence of bilirubin, did have some nitrites as well. Ammonia level was elevated, 61. CT abdomen and pelvis noted consistent with underlying cirrhosis with nodular-type appearance. Procalcitonin elevated at 6.5. Lactic acid was elevated at 4.3 as well. He was started on empiric broad-spectrum therapy with vancomycin and Zosyn. At this point, he is requiring pressor support, high dose norepinephrine, has been given fluid and albumin as well. ALLERGIES: None known. CURRENT MEDICATIONS: Include vancomycin, norepinephrine, Zosyn, famotidine, lorazepam, hydrocortisone 100 mg IV q. 8, lactulose, ondansetron. PAST MEDICAL HISTORY: As described above, recent history of cancer of the gastrointestinal related tract. The patient's ____the diagnosis of underlying COPD. He has a cardiomyopathy with congestive heart failure, gout, hypertension. SOCIAL HISTORY: Former smoker, occasional ethanol, no illicit drug use. [address] [address] CONSULTATION Name: ESDRAS WHITFIELD Room #: 243-P [facility] IN M.R.#: [id number] Admission: 12/28/20 Attend Phys: Ash Rosa MD Discharge: Date of : 51 Report #: [id number] FAMILY HISTORY: Noncontributory. REVIEW OF SYSTEMS: Not reliably obtained. PHYSICAL EXAMINATION: GENERAL: He appears chronically ill, undernourished. He is moderately encephalopathic. He does make eye contact. He seems to attempt to answer questions. He is oriented to place and person. VITAL SIGNS: Temperature 96.4, pulse 82, respirations 16, blood pressure 118/59. SKIN: Warm. He does have jaundice. HEENT: Normocephalic. Extraocular muscles intact. Nasal cannula in place at 2 liters. NECK: Supple. LUNGS: Few scattered coarse breath sounds were noted at the bases. HEART: Regular. ABDOMEN: Tautly distended, firm, although no apparent palpable tenderness. GENITOURINARY: Deferred. RECTAL: Deferred. LABORATORY DATA: Lactic acid now 2.9. Electrolytes: Sodium 140, potassium 3.7, chloride 107, bicarbonate 18, BUN and creatinine 43 and 2.2, glucose of 167. Estimated GFR of 30. Ammonia 90. CBC: White count of 38.1, H and H 8.4 and 25.8, platelets of 108. Random cortisol 17.5. TSH of 3.392, free T4 of 0.7. Procalcitonin as noted earlier 6.5. Fibrinogen 294. CT as described above. ASSESSMENT AND PLAN: Septic shock. 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 Continue broad spectrum antimicrobial therapy. Certainly has potential ____ of infection, ____ exclude spontaneous bacterial peritonitis. May benefit from paracentesis for both therapeutic as well as diagnostic purposes. At this point, would supplement on oxygen. Doubtful he could expectorate any sputum. We will await blood cultures, urine culture, see how he does clinically. He is certainly at risk for deterioration in this setting. <ELECTRONICALLY SIGNED> By: Raul Stephens MD 12/30/20 0735 [id number] Raul Stephens MD /nt
--- NOTE | 2020-12-30 08:30 | NUR ---
RN REQUESTED OT RETURN IN AM AND CHECK MEDICAL STATUS FOR APPROPRIATENESS OF EVAL AT THAT TIME
--- NOTE | 2020-12-30 12:12 | NUR ---
Chart review, DX: septic shock, UTI, EDITA. He is resting in bed with eyes closed. Cortes visited with /sig other miya # . Intro to cm, dcp home health and rehab. He lives with miya in house, 2 steps to enter and no stairs inside that he must do. sometimes when not feeling good or is sick, must help him put on his pants and Independent with other ADL's. Just got walker from the [facility], PCP dr Chaudhary at the [facility], no home oxygen. On service with [facility] home health. Drives vehicle. Miya sets up his medication on pill box and then he manages it from there. Not had any tx for new cancer diagnosis from [facility] so this time when was not feeling good, we came to [facility] per miya. Active listing and support during visit. He was in hospital at [facility] in nov 2020, had paracentesis to remove fluid, but not ever seen oncology at the [facility] per miya. will cont. following as needed for dc needs.
[2020-12-30 15:25] LABS: ABSOLUTE RETIC COUNT 0.0674 10^6/uL; OBSERVED RETIC COUNT 2.51 % (0.6-2.6)
[2020-12-30 15:33] LABS: % SATURATION 71 % (20-39); IRON 34 ug/dL (65-175); TIBC 48 ug/dL (250-450)
[2020-12-30 16:03] LABS: BF NUCLEATED CELLS 204 /mm3; BF RBC 1469 /mm3
[2020-12-30 16:07] LABS: CLARITY CLEAR; COLOR YELLOW; TOTAL VOLUME 65 mL
[2020-12-30 16:34] LABS: FERRITIN 2880 ng/mL (26-388); FOLIC ACID 5.3 ng/mL (8.6-58.9)
[2020-12-30 17:30] LABS: MAGNESIUM 2.1 mg/dL (1.8-2.4)
[2020-12-30 17:33] LABS: POTASSIUM 2.8 mmol/L (3.5-5.1)
[2020-12-30 17:46] LABS: BF MACROPHAGE 10 %; BF NEUTROPHILS 76 %; SOURCE ABDOMINAL
--- NOTE | 2020-12-30 20:26 | NUR ---
PATIENT IS NOT PROGRESSING TOWARDS DISCHARGE AT THIS TIME, BARRIERS TO DISCHARGE AT THIS TIME REMAINS PERSISTANT CONFUSION. DUE TO LIVER PROCESSES, AMMONIA LEVEL REMAINS HIGH AND PATIENT EXHIBITING SYMPTOMS OF ENCEPHALOPATHY; RESTLESSNESS/CONFUSION/IMPULSIVENESS. PATIENT BECAME MORE RESTLESS THROUGH THE COURSE OF THE EVENING, THE DOBHOFF WAS UNABLE TO BE PLACED DUE TO IMPULSIVENSS, PT WAS SEEN TAKING ALL ELCTRO LEADS/PULSE PROBES OFF EVEN AFTER REPEATED TEACHINGS. PATIENT'S WANTED CALLS FROM THE PHYSICIAN, RN CONTACTED PRIMARY/WELDER PLASTIC/ONCOLOGIST TO REACH OUT, ONC/ICU MD TALKED TO THE . VERBALIZED GRATITUDE AND STATED THAT ALL [facility]OUGHOUT THE [facility] SHE WAS NEVER GIVEN THIS MUCH INFORMATION COUPLE HOSPITAL DAYS SPENT HERE. AGAIN, VERY GRATEFUL. RN REACHED OUT TO THE [facility], OBTAINED MEDICAL RECORDS SUCCESFULLY AND CONTACTED THE ONCOLOGY MD REQUESTED ABOUT THE PET SCAN, THE REPORTS ARE SAFELY KEPT IN THE PATIENT DRAWER W/ THE REST OF THE CHART PARACENTESIS WAS DONE TODAY AT BEDSIDE BY THE IR PHYSICIAN W/ APPROVAL ON PLAN OF CARE FROM ONCOLOGIST/WELDER PLASTIC/HOSPITALIST. PATIENT DID HAVE SEEPAGE FROM THE SITE THROUGHOUT THE REST OF THE DAY. PATIENT'S STOPPED BY AND RN TALKED ABOUT THE CURRENT STATE OF THE PATIENT. PATIENT'S POTASSIUM LEVEL CONTINUES TO BE AN ISSUE, WAS 2.7, TOTAL OF 60 MEQ GIVEN AND CAME BACK AT 2.8, UNSURE WHY, ICU MD NOTIFIED, ELECTROLYTE PROTOCOL IN PLACE AT THIS TIME, REPLACING NECESSARY RN SIGNING OFF
[2020-12-30 23:37] LABS: CALCIUM 7.9 mg/dL (8.5-10.1); CREATININE 1.4 mg/dL (0.7-1.3); POTASSIUM 3.2 mmol/L (3.5-5.1)
[2020-12-31] VITALS (73 sets, daily range): BP systolic 91–131; BP diastolic 53–76
[2020-12-31 04:31] LABS: CALCIUM 8.1 mg/dL (8.5-10.1); CREATININE 1.6 mg/dL (0.7-1.3); POTASSIUM 3.8 mmol/L (3.5-5.1)
[2020-12-31 04:59] LABS: HEMATOCRIT 24.3 % (42.0-52.0); HEMOGLOBIN 7.9 gm/dL (14.0-18.0); MCH 30.6 pg (26.0-34.0); MCHC 32.7 g/dL (28.0-37.0); MCV 93.7 fL (80.0-100.0); RBC 2.6 mil/uL (4.50-6.00); RDW 24.5 % (10.5-14.5); WBC 24.8 thou/uL (4.0-11.0)
--- NOTE | 2020-12-31 06:00 | NUR ---
PT HAS SLEPT AT INTERVALS TONIGHT HAS PERIODS OF AGITATION STATED I WANT TO GO HOME AND ATTEMPTS TO SIT UP ATIVAN 0.5 MG GIVEN LUNGS ESS CLEAR ABD CONT TO HAVE SEVERE ACITIES. O2 SAT 99 % ON ROOM AIR. REFUSES ORAL CARE AND WEARING A GOWN, PULLS AT MONITOR PATCHES BATHED. REMAINS A DO NOT INTUBATE LEVOPHED GTT AT 13 MCG FOR BP SUPPORT. NO STOOLS TONIGHT STRICT NPO NOT PROGRESSING TOWARD GOALS.
--- NOTE | 2020-12-31 14:07 | NUR ---
Case discussed with the care team. has talked with the attending and oncology this morning. Pt will be transitioning to comfort care this afternoon. DNR orders is in place. Arrangements being made per VALVE LINER RUBBER/unit mngr for additional visitors and hemal as needed. Will remain available for support as needed.
--- NOTE | 2020-12-31 17:47 | NUR ---
report give to SOPHIE Rojas. Pt is palliative care. Miya made aware that patient will be transferring to 4 west to Room 454. was given 4 west floor number
--- NOTE | 2021-01-01 04:48 | NUR ---
Pt. has been non-verbal all shift with his eyes closed. Prn ativan given (see emar) for restlessness. Pt. has been figidty in the bed at times. Ativan noted to be helpful. Family at the bedside earlier this shift. Pt. turned and repositioned. Oral mouth care given. Bed alarm is on.
[2021-01-01 09:06] VITALS: BP 119/68
[2021-01-01 13:38] LABS: SOURCE ABDOMINAL
[2021-01-01 13:42] VITALS: BP 119/68
--- NOTE | 2021-01-01 13:45 | NUR ---
Sign other/dpoa Miya here this am and unit cm visited with her regarding hospice options. She wishes to pursue home with hospice services today as this was his desire to pass at home. Case discussed with the unit rn and attending. Pt appears stable for transport home. Options for hospice providers discussed but will need to be in network with [facility]. Miya indicatd interest in [facility] as they had been doing his HH servcies. Cm spoke with [facility] however they do not have a contract with [facility] for their hospice services. Unit cm notified Miya and she would like to use Hospice. Referral faxed and called to [facility]. They can accept and will initiate dme setup for this afternoon as well as confirm their admission RN. DPOA document also faxed to intake. [employer] form completed and faxed. Awaiting confirmation on transport time. The attending is finalizing dc orders and scripts. Certified Driver Examiner spoke with the materials planning manager at pcp Dr. Chaudhary at the [facility] and they have gotten the hospice order in place per the pt's oncologist. Their palliative care remote inpatient coder Carmen has assisted with confirm the [facility] authorization and faxed a copy of the auth to intake at [facility]. Outside the hospital DNR form signed by the attending and to be sent home with the pt. Dc transport time pending.
[2021-01-01] MEDS ORDERED: MORPHINE S100 MG/51 SUBLING (14:12)
[2021-01-01] MEDS ORDERED: LORAZEPAM I2 MG/1 M2 SUBLING (14:12)
--- NOTE | 2021-01-01 15:17 | NUR ---
ASSUMED CARE AT SHIFT CHANGE. PT IS COMFORT CARE, VITALS HAVE BEEN STABLE THUS FAR. PLAN TO DC HOME WITH HOSPICE TODAY AT 1700. PT GIVEN PRN MEDS FOR COMFORT. SIG OTHER UPDATED VIA PHONE. PT IN NO ACUTE DISTRESS. ASSESSMENT PER CHART. WILL CONT TO MONITOR AND FOLLOW POC.
[2021-01-02 18:06] LABS: BODY FLUID ALBUMIN 0.4 g/dL (Not Estab.); BODY FLUID AMYLASE < 3 U/L (()); BODY FLUID GLUCOSE 123 mg/dL (()); BODY FLUID LDH 139 IU/L (()); BODY FLUID PROTEIN 1.5 g/dL (())
== END 2021-01-01 18:12 | disposition hospice, home (50) | DRG 871 ==
LOC: ER 16:05 → EROBS 17:55 → ICU 17:55 → 4W 12-31 18:47
PROVIDERS: Emergency Medicine; Internal Medicine; Internal Medicine Pulmonary Disease; ADMIT Internal Medicine; ATTEND Internal Medicine
PROC: 02H633Z Insertion of Infusion Device into Right Atrium, Percutaneous Approach (ICD-10-PCS; principal; 2020-12-28)
PROC: 30233K1 Transfusion of Nonautologous Frozen Plasma into Peripheral Vein, Percutaneous Approach (ICD-10-PCS; 2020-12-29)
PROC: 0W9G3ZZ Drainage of Peritoneal Cavity, Percutaneous Approach (ICD-10-PCS; 2020-12-30)
DX: A41.9 Sepsis, unspecified organism (principal); N17.0 Acute kidney failure with tubular necrosis; R65.21 Severe sepsis with septic shock; E43 Unspecified severe protein-calorie malnutrition; K76.7 Hepatorenal syndrome; G92.8 Other toxic encephalopathy; R18.8 Other ascites; D68.9 Coagulation defect, unspecified; C22.1 Intrahepatic bile duct carcinoma; I42.9 Cardiomyopathy, unspecified; I13.0 Hypertensive heart and chronic kidney disease with heart failure and stage 1 through stage 4 chronic kidney disease, or unspecified chronic kidney disease; K74.60 Unspecified cirrhosis of liver; D64.9 Anemia, unspecified; D69.6 Thrombocytopenia, unspecified; N18.9 Chronic kidney disease, unspecified; F10.10 Alcohol abuse, uncomplicated; J44.9 Chronic obstructive pulmonary disease, unspecified; I50.9 Heart failure, unspecified; E83.51 Hypocalcemia; E86.0 Dehydration; E16.2 Hypoglycemia, unspecified; F17.210 Nicotine dependence, cigarettes, uncomplicated; R53.81 Other malaise; M10.9 Gout, unspecified; Z20.822 Contact with and (suspected) exposure to COVID-19; K72.90 Hepatic failure, unspecified without coma; Z66 Do not resuscitate; I95.9 Hypotension, unspecified; Z79.899 Other long term (current) drug therapy; Z68.31 Body mass index [BMI] 31.0-31.9, adult; Z51.5 Encounter for palliative care
CPT/HCPCS: 10047; 10078; 50455; 85076